=== PATIENT | male | born 1980 | race Caucasian/White ===

== ENCOUNTER 2025-03-09 15:40 | Outpatient (REF) | payer BC, SELFPAY ==
--- NOTE | 2025-03-09 | EMG_ITS ---
Please see the attached neurophysiology report MTDD
--- OUTSIDE RECORDS SUMMARY | 2025-03-09 16:08 | XMS_ITS | Clinical Summary ---
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 5 Active FLUoxetine (PROzac) 10 mg capsule Take 1 capsule (10 mg total) by mouth. 4 Active dupilumab (Dupixent Syringe) 300 mg/2 mL syringe 0 Refills, Maintenance, 09/22/24 2:06:00 PM EST, Partial fill upon patient request if the prescription is for a schedule II opioid drug. 5 Active LORazepam (ATIVAN) 0.5 mg tablet Take 1 tablet (0.5 mg total) by mouth. 1 Active Active Problems Problem Noted Date Diagnosed Date Allergies 12/22/2024 Anxiety 12/22/2024 Cervicogenic headache 12/22/2024 Cervical spondylosis with radiculopathy 12/23/19 Assessment & Plan (12/23/2024 5:21 PM EDT): Chuck Black describes several years of neck pain with cervicogenic headaches and pain in the left trapezius. He notes numbness in the 3 digits of the left hand. He has had physical therapy, chiropractic treatment, and acupuncture. An MRI of the cervical spine shows multilevel cervical spondylosis most significant at C5-6 and C6-7 where there is right greater than left lateral recess and foraminal stenosis. Dr. Olsen reviewed the films and noted that his symptoms are on the left side but the stenosis is more significant on the right. She suggested an EMG and nerve conduction study to better understand the situation. I will order the study and will be back in touch with Mr. Black afterwards. Facet arthritis of cervical region 12/22/2024 HTN (hypertension) 12/22/2024 Hyperlipidemia 12/22/2024 Myofascial pain 12/22/2024 Nasal polyps 12/22/2024 Occipital neuralgia of left side 12/22/2024 Severe obesity (CMS/HCC V24, CMS/HCC V28) 2024 Squamous cell cancer of skin of thumb 12/22/2024 Tachycardia 12/22/2024 Encounters Date Type Department Care Team Description 01/14/2025 Telephone Neurosurgery [address] [address] Chanel Hendrickson MA Referral (Insurance referral needed for Pt appt w[facility]th [facility]. Appt with Dr Merrill, for appt 01/15/25. Fax sent to office. [facility] and provided all information needed 01/14/25 10:45am. Provided name and number here for any questions or concerns. Faxed this action to [facility] for the office to know it was requested. ) 12/25/2024 Telephone Neurosurgery [address] [id number] Annmarie Miranda MA Appointment (EMG/NCS appointment scheduled for 01/15/25 @ 8:30am w/ at [facility]. Pt aware) 12/23/2024 3:00 PM EDT Consult Neurosurgery [address] [id number] Mino Monterroso PA Cervical spondylosis with radiculopathy (Primary Dx); DDD (degenerative disc disease), cervical from Last 3 Months Immunizations Name Administration Dates Next Due Tdap Tetanus diptheria acell ular pertussis (Boostrix; Adacel) 7yo and older 06/20/2016 Surgical History Surgery Date Site/Laterality Comments RHINOPLASTY N/A nose fracture Medical History Medical History Date Comments Anxiety Cervicogenic headache DDD (degenerative disc disease), cervical HTN (hypertension) Hyperlipidemia Myofascial pain Nasal polyps Neural foraminal stenosis of cervical spine Occipital neuralgia of left side Severe obesity (BMI 35.0-39. 9) with comorbidity (CMS/HCC V24, CMS/HCC V28) Squamous cell cancer of skin of thumb Tachycardia Family History Medical History Relation Name Comments Aneurysm Mother Hypotension Mother Cancer Paternal Grandfather Relation Name Status Comments Father hiv Mother Alive Paternal Grandfather Sister Alive Social History Tobacco Use Types Packs/Day Years Used Date Smoking Tobacco: Never Smokeless Tobacco: Never Alcohol Use Standard Drinks/Week Comments Not Asked 0 (1 standard drink = 0.6 oz pur e alcohol) Sex and Gender Information Value Date Recorded Sex Assigned at Not on file Legal Sex Male 5:28 PM EST Gender Identity Not on file Sexual Orientation Not on file Obstetrics History Last Filed Vital Signs Vital Sign Reading Time Taken Comments Blood Pressure - - Pulse - - Temperature - - Respiratory Rate - - Oxygen Saturation - - Inhaled Oxygen Concentration - - Weight 107 kg (235 lb) 12/23/2024 3:08 PM EDT Height 175.3 cm (5' 9 ) 12/23/2024 3:08 PM EDT Body Mass Index 34.7 12/23/2024 3:08 PM EDT Plan of Treatment Health Maintenance Due Date Last Done Comments COVID-19 Vaccine (#1) 11/11/1984 Hepatitis B Vaccines (1 of 3 - 19+ 3-dose series) 11/11/1998 Pneumococcal Vaccine: Pediat rics (0 to 5 Years) and At-Risk Patients (6 to 49 Years) (1 of 2 - PCV) 11/11/1998 Depression Screening 08/20/2024 Cholesterol Screening (Lipid Panel) 12/01/2024 Colorectal Cancer Screening: Colonoscopy 12/01/2024 HIV Screening 12/01/2024 Hepatitis C Screening 12/01/2024 Social Influencers of Health Screening 12/01/2024 Hypertension/CHF/CAD Annual BMP Blood Test 12/22/2024 Influenza Vaccine (#1) 2025 DTaP,Tdap,and Td Vaccines (2 - Td or Tdap) 06/20/2026 06/20/2016 HIB Vaccines Aged Out No longer eligi ble based on patient's age to complete this topic HPV Vaccines Aged Out No longer eligi ble based on patient's age to complete this topic Hepatitis A Vaccines Aged Out No long er eligible based on patient's age to complete this topic IPV Vaccines Aged Out No longer eligi ble based on patient's age to complete this topic MMR Vaccines Aged Out No longer eligi ble based on patient's age to complete this topic Meningococcal ACWY Vaccine Aged Out N o longer eligible based on patient's age to complete this topic Meningococcal B Vaccine Aged Out No l onger eligible based on patient's age to complete this topic RSV Immunization Patients Un alexander 20 months Aged Out No longer eligible b ased on patient's age to complete this topic Varicella Vaccines Aged Out No longer eligible based on patient's age to complete this topic Insurance Care Teams 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
== END 2025-03-09 15:41 | disposition home or self-care (01) ==
LOC: HO.NEURO 15:40
PROVIDERS: Visit Provider Psychiatry & Neurology Neurology
DX: M54.12 Radiculopathy, cervical region (principal)
CPT/HCPCS: 95886; 95913

== ENCOUNTER → 2025-03-09 15:50 | Outpatient (BNV) | payer BC, SELFPAY | PROVIDERS: Visit Provider Psychiatry & Neurology Neurology | DX: G56.03 Carpal tunnel syndrome, bilateral upper limbs (principal) | CPT/HCPCS: 95886; 95913 ==